=== PATIENT | female | born 1975 | race Hispanic/Latino ===

== ENCOUNTER 2020-02-02 05:17 | Emergency (ER) | payer SELFPAY ==
--- NOTE | 2020-02-02 06:15 | XRay Report ---
RIGHT ANKLE 3 VIEWS INDICATION / CLINICAL INFORMATION: pain and swelling R ankle s/p fall COMPARISON: None available. FINDINGS: BONES / JOINT(S): Transverse fractures through the medial and lateral malleoli. No significant arthri tis. SOFT TISSUES: Bimalleolar soft tissue swelling greater laterally. ADDITIONAL FINDINGS: None. Signer Name: Armani Tate MD Signed: 02/02/2020 6:10 AM Workstation Name: [id number]
--- NOTE | 2020-02-02 06:29 | Emergency Department Report ---
ED Lower Extremity HPI - General Chief Complaint: Fall Stated Complaint: RT ANKLE/HEAD INJURY Time Seen by Provider: 02/02/20 06:18 Source: patient Mode of arrival: Ambulatory Limitations: No Limitations - History of Present Illness Initial Comments: cc: my ankle hurts hpi: This is a healthy 44 yo female with hx of MVP who presents with severe right ankle pain. She injured her right ankle after slipping from a homemade swing hanging from her magnolia tree. She landed on her right leg. She has mild swelling and severe pain at the right ankle. No other injuries. No head trauma. No LOC. No neck pain,. NO laceration. MD Complaint: leg injury, fall -: This morning Injury: Ankle: Right Type of Injury: unknown Place: home Severity: severe Severity scale (0 -10): 8 Worsens With: weight bearing Context: fall Associated Symptoms: swelling, unable to bear weight Treatments Prior to Arrival: cold therapy - Related Data Previous Rx's Medication Instructions Recorded Last Taken Type HYDROcodone/APAP 5-325 [[place] 1 each PO Q6HR PRN #15 tablet 02/02/20 Unknown Rx 5/325] Allergies Allergy/AdvReac Type Severity Reaction Status Date / Time No Known Allergies Allergy Verified 04/02/13 02:56 ED Review of Systems ROS: Stated complaint: RT ANKLE/HEAD INJURY Other details as noted in HPI Constitutional: denies: fever, malaise Respiratory: denies: cough, shortness of breath Gastrointestinal: denies: abdominal pain, nausea, vomiting Musculoskeletal: joint swelling, arthralgia. denies: back pain, myalgia Skin: denies: change in color, change in hair/nails Neurological: denies: headache ED Past Medical Hx - Past Medical History Previous Medical History?: Yes Hx Congestive Heart Failure: No Hx Diabetes: No Hx Asthma: No Hx COPD: No Hx HIV: No Additional medical history: MVP - Surgical History Past Surgical History?: No Additional Surgical History: tubal ligation 2004. R ovarian cyst removal 1991 - Social History Smoking Status: Current Every Day Smoker Substance Use Type: Marijuana - Medications Home Medications: Home Medications Medication Instructions Recorded Confirmed Last Taken Type HYDROcodone/APAP 5-325 [[place] 1 each PO Q6HR PRN #15 tablet 02/02/20 Unknown Rx 5/325] ED Physical Exam - General Limitations: No Limitations General appearance: alert, in no apparent distress - Head Head exam: Present: atraumatic, normocephalic - Eye Eye exam: Present: normal appearance. Absent: scleral icterus, conjunctival injection - ENT ENT exam: Present: mucous membranes moist - Neck Neck exam: Present: normal inspection, full ROM - Respiratory Respiratory exam: Absent: respiratory distress - Expanded Lower Extremity Exam Right Hip exam: Present: normal inspection, full ROM. Absent: tenderness, swelling Upper Leg exam: Present: normal inspection, full ROM. Absent: tenderness, swelling Knee exam: Present: normal inspection, full ROM. Absent: tenderness Lower Leg exam: Present: normal inspection Ankle exam: Present: full ROM, tenderness, swelling. Absent: abrasion, laceration, ecchymosis, deformity, crepidus, dislocation, erythema, anterior draw sign Foot/Toe exam: Present: normal inspection, full ROM. Absent: tenderness, swelling, abrasion Neuro vascular tendon exam: Present: no vascular compromise (2+ DP pulse) - Neurological Exam Neurological exam: Present: alert, oriented X3 - Psychiatric Psychiatric exam: Present: normal affect, normal mood - Skin Skin exam: Present: warm, dry, intact, normal color ED Course Vital Signs 02/02/20 05:25 Temperature 97.5 F L Pulse Rate 88 Respiratory 18 Rate Blood Pressure 137/100 O2 Sat by Pulse 95 Oximetry ED Lower Extremity MDM - Radiology Data Radiology results: report reviewed, image reviewed RIGHT ANKLE 3 VIEWS INDICATION / CLINICAL INFORMATION: pain and swelling R ankle s/p fall COMPARISON: None available. FINDINGS: BONES / JOINT(S): Transverse fractures through the medial and lateral malleoli. No significant arthritis. SOFT TISSUES: Bimalleolar soft tissue swelling greater laterally. ADDITIONAL FINDINGS: None. - Medical Decision Making Right closed bimalleolar fracture after fall. I personally reviewed the images. The transverse fractures of both malleoli are nondisplaced. Patient will not need operative intervention if she maintains nonweightbearing status. Patient received for fracture care here in the emergency department. I recommended follow-up with orthopedic surgeon in 7 to 10 days. Long posterior splint was applied to the right lower extremity under my supervision. After application the extremity was neurovascularly intact with acceptable alignment. Critical care attestation.: If time is entered above; I have spent that time in minutes in the direct care of this critically ill patient, excluding procedure time. ED Disposition Clinical Impression: Closed bimalleolar fracture of right ankle Disposition: DC- TO HOME OR SELFCARE Is pt being admited?: No Does the pt Need Aspirin: No Condition: Stable Instructions: Ankle Fracture (ED), Splint Care (ED) Additional Instructions: Please do not put weight on your ankle until evaluated by orthopedic surgeon. Prescriptions: HYDROcodone/APAP 5-325 [[place] 5/325] 1 each PO Q6HR PRN #15 tablet PRN Reason: Pain Referrals: LILLIE URIBE MD [Staff Physician] - 7-10 days
[2020-02-02] MEDS ORDERED: oxyCODONE /ACETAMINOPHEN 5-325MG TAB PO ONE (06:34)
[2020-02-02] MEDS ORDERED: ONDANSETRON 4 MG ODT TAB PO ONE (06:34)
[2020-02-02 07:45] VITALS: BP 142/92
== END 2020-02-02 07:43 | disposition home or self-care (01) ==
LOC: ED 05:17
DX: S82.841A Displaced bimalleolar fracture of right lower leg, initial encounter for closed fracture (principal); F17.200 Nicotine dependence, unspecified, uncomplicated; Z79.899 Other long term (current) drug therapy; Z98.890 Other specified postprocedural states; W14.XXXA Fall from tree, initial encounter; Y93.89 Activity, other specified; Y92.89 Other specified places as the place of occurrence of the external cause; Y99.8 Other external cause status
CPT/HCPCS: Q0162